=== PATIENT | male | born 1940 | race Caucasian/White ===

== ENCOUNTER 2016-06-26 10:47 | Emergency (ER) | payer MEDICARE, OTHER ==
[~2016-06-26] VITALS: Ht 167.6 cm; Wt 77.9 kg
[~2016-06-26 10:47] MED LIST: ALBU1AER INH; AVOD0.5C PO; FERR65TA PO; FLUD.1 PO; GEMF600T PO; LACT20SO4 PO; OMEP20TA PO; REST30CA PO; SUMA50 PO
[2016-06-26 10:59] VITALS: BP 160/85; PULSE 50; RESP 24; TEMP 97.9; O2SAT 95
[2016-06-26] MEDS ORDERED: ALBUAER3 INH (11:14)
[2016-06-26] MEDS ORDERED: OMEP20TA PO (11:14)
[2016-06-26] MEDS ORDERED: GEMF600T PO (11:14)
[2016-06-26] MEDS ORDERED: REST30CA PO (11:14)
[2016-06-26] MEDS ORDERED: AVOD0.5C PO (11:14)
[2016-06-26] MEDS ORDERED: IMIT50TA PO (11:14)
[2016-06-26] MEDS ORDERED: FERR325T PO (11:14)
--- NOTE | 2016-06-26 11:42 | PD ---
HPI Chief Complaint: Respiratory Symptoms Time Seen by Provider: 11:14 Travel History International Travel<30 days: No Contact w/Intl Traveler<30days: No Traveled to known affect area: No History of Present Illness HPI 76-year-old male complains of shortness of breath. Patient states that the symptoms started about 5 days ago. Patient states that he has intermittently dry cough right days ago and productive cough since yesterday. Patient states that he does not have any fever however intermittent sweating. Patient states that he has intermittent substernal chest discomfort also. Patient denies any chest pain radiation. Patient denies palpitation. Patient has history of COPD on nebulizer treatment at home. Patient also has history of CAD status post stents placement. Patient has history of diabetes. Patient is a nonsmoker. Patient denies any chest pain now. Patient was given prescription for antibiotic and prednisone which she started about 5 days ago after he started having shortness of breath. Patient was advised by his physician to be on home O2 however had not used in the oxygen recently. PFSH Past Medical History Hx Anticoagulant Therapy: Yes (BABY ASA DAILY) Arthritis: Yes (SHOULDERS , HIPS) Asthma: Yes Anxiety: Yes Depression: No Heart Rhythm Problems: No Cancer: No Cardiovascular Problems: Yes (HYPOTENSION, [place], STENTS ) High Cholesterol: Yes Chest Pain: No Congestive Heart Failure: No COPD: Yes Cerebrovascular Accident: No Coronary Artery Disease: Yes Diabetes: Yes (BORDERLINE) Patient Takes Glucophage: No Diminished Hearing: No Deep Vein Thrombosis: Yes Endocrine: No Gastrointestinal Disorders: No GERD: No Glaucoma: No Genitourinary: No Headaches: No Hepatitis: No Hiatal Hernia: No Hypertension: Yes Implanted Vascular Access Dvce: Yes Kidney Stones: No Medical other: No Musculoskeletal: Yes Neurologic: Yes Psychiatric: No Reproductive: Yes Respiratory: Yes (COPD, BRONCHITIS) Immunizations Current: Yes Migraines: Yes Renal Failure: No Seizures: No Sleep Apnea: No Thyroid Disease: No Ulcer: No Tetanus Vaccination: < 5 Years PNEUMOCCOCAL Vaccine (Year): 3 Past Surgical History Abdominal Surgery: Yes (SPLEENECTOMY, APPENDECTOMY) AICD: No Appendectomy: Yes Body Medical Devices: SCREWS IN ANKLE Cholecystectomy: Yes Coronary Stent: Yes Endocrine Surgery: No Insulin Pump: No Joint Replacement: Yes (right ankle screws) Neurologic Surgery: No Pacemaker: No Other Surgery: Yes Social History Alcohol Use: No Tobacco Use: Yes (QUIT 10 YR AGO) Substance Use: No Allergies-Medications (Allergen,Severity, Reaction): Coded Allergies: No Known Allergies (Verified , 06/26/16) Reported Meds & Prescriptions Reported Meds & Active Scripts Active Reported Imitrex (Sumatriptan Succinate) 50 Mg Tab 50 Mg PO ONCE PRN If a satisfactory response has not been obtained at 2 hours, a second dose may be administered Restoril (Temazepam) 30 Mg Cap 30 Mg PO HS PRN Omeprazole 20 Mg Tab 20 Mg PO DAILY Gemfibrozil 600 Mg Tab 600 Mg PO DAILY Take 30 minutes prior to breakfast and dinner. Ferrous Sulfate 325 Mg Tab 325 Mg PO BID Avodart (Dutasteride) 0.5 Mg Cap 0.5 Mg PO DAILY Proair Hfa 8.5 GM Inh (Albuterol Sulfate) 90 Mcg/Act Aer 1 Puff INH Q6H PRN 108 mcg/actuation Review of Systems General / Constitutional: No: Fever Eyes: No: Visual changes HENT: No: Headaches Cardiovascular: Positive: Chest Pain or Discomfort Respiratory: Positive: Cough, Shortness of Breath Gastrointestinal: No: Abdominal Pain Genitourinary: No: Dysuria Musculoskeletal: No: Pain Skin: No Rash Neurologic: No: Weakness Psychiatric: No: Depression Endocrine: No: Polydipsia Hematologic/Lymphatic: No: Easy Bruising Physical Exam Narrative GENERAL: Well-nourished, well-developed patient. SKIN: Warm and dry. HEAD: Normocephalic. EYES: No scleral icterus. No injection or drainage. NECK: Supple, trachea midline. No JVD or lymphadenopathy. CARDIOVASCULAR: Regular rate and rhythm without murmurs, gallops, or rubs. RESPIRATORY: Breath sounds equal bilaterally. No accessory muscle use. Moderate expiratory wheezes bilaterally. Few rhonchi at the bases. GASTROINTESTINAL: Abdomen soft, non-tender, nondistended. MUSCULOSKELETAL: No cyanosis, or edema. BACK: Nontender without obvious deformity. No CVA tenderness. Neurologic exam normal. Data Data Last Documented VS Vital Signs Date Time Temp Pulse Resp B/P Pulse Ox O2 Delivery O2 Flow Rate FiO2 06/26/16 12:12 61 20 116/70 96 Nasal Cannula 2 06/26/16 10:59 97.9 Orders Complete Blood Count With Diff (06/26/16 11:36) Comprehensive Metabolic Panel (06/26/16 11:36) B-Type Natriuretic Peptide (06/26/16 11:36) Act Partial Throm Time (Ptt) (06/26/16 11:36) Prothrombin Time / Inr (Pt) (06/26/16 11:36) Ckmb (Isoenzyme) Profile (06/26/16 11:36) Troponin I (06/26/16 11:36) Iv Access Insert/Monitor (06/26/16 11:36) Ecg Monitoring (06/26/16 11:36) Oximetry (06/26/16 11:36) Oxygen Administration (06/26/16 11:36) Chest, Single Ap (06/26/16 11:36) Methylprednisolone So Succ Inj (Solumedr (06/26/16 11:45) Albuterol-Ipratropium Neb (Duoneb Neb) (06/26/16 11:45) Labs Laboratory Tests Test 06/26/16 11:00 White Blood Count 15.1 TH/MM3 Red Blood Count 4.84 MIL/MM3 Hemoglobin 14.6 GM/DL Hematocrit 43.4 % Mean Corpuscular Volume 89.7 FL Mean Corpuscular Hemoglobin 30.3 PG Mean Corpuscular Hemoglobin 33.7 % Concent Red Cell Distribution Width 14.8 % Platelet Count 193 TH/MM3 Mean Platelet Volume 11.3 FL Neutrophils (%) (Auto) 75.1 % Lymphocytes (%) (Auto) 15.2 % Monocytes (%) (Auto) 6.3 % Eosinophils (%) (Auto) 0.8 % Basophils (%) (Auto) 2.6 % Neutrophils # (Auto) 11.3 TH/MM3 Lymphocytes # (Auto) 2.3 TH/MM3 Monocytes # (Auto) 1.0 TH/MM3 Eosinophils # (Auto) 0.1 TH/MM3 Basophils # (Auto) 0.4 TH/MM3 CBC Comment DIFF FINAL Differential Comment Prothrombin Time 10.7 SEC Prothromb Time International 1.0 RATIO Ratio Activated Partial 22.2 SEC Thromboplast Time Sodium Level 146 MEQ/L Potassium Level 4.0 MEQ/L Chloride Level 110 MEQ/L Carbon Dioxide Level 26.4 MEQ/L Anion Gap 10 MEQ/L Blood Urea Nitrogen 28 MG/DL Creatinine 1.20 MG/DL Estimat Glomerular Filtration 59 ML/MIN Rate Random Glucose 109 MG/DL Calcium Level 8.2 MG/DL Total Bilirubin 0.5 MG/DL Aspartate Amino Transf 26 U/L (AST/SGOT) Alanine Aminotransferase 52 U/L (ALT/SGPT) Alkaline Phosphatase 56 U/L Total Creatine Kinase 46 U/L Troponin I LESS THAN 0.02 NG/ML B-Type Natriuretic Peptide 150 PG/ML Total Protein 6.6 GM/DL Albumin 3.3 GM/DL MDM Medical Decision Making Medical Screen Exam Complete: Yes Emergency Medical Condition: Yes Interpretation(s) 11:41 AM. EKG shows sinus rhythm nonspecific ST-T wave change. 12:52 PM. CBC WBC 15.1. 75 neutrophil. Sodium 146. Chloride 110. BUN 28. Cardiac enzymes are normal. BNP 150. 1318 p.m. Chest x-ray shows no acute consolidation. Differential Diagnosis Differential diagnosis including acute exacerbation of COPD, bronchitis, pneumonia, PE, pneumothorax, angina, [place] Narrative Course 76-year-old male with coughing and shortness of breath and chest discomfort. History of COPD. Albuterol with Atrovent unit dose treatment 3. Solu-Medrol 125 mg IV. Patient was offered admission for acute exacerbation of COPD. Patient wants to go home and try medication at home and oxygen at home. Patient states that he will come back if he has increased shortness of breath. Diagnosis Primary Impression: COPD with acute exacerbation Patient Instructions: General Instructions Additional Instructions: Continue with antibiotic and prednisone is directed. Follow-up with personal physician. Advised patient strongly to use home O2. Return if worse. Med/Other Pt SpecificInfo: Prescription(s) given, No Change to Meds Scripts Levofloxacin (Levaquin)500 Mg [id number] Mg PO DAILY #10 TAB Ref 0 Prov:Richard Bateman MD 06/26/16 Disposition: 01 DISCHARGE HOME Condition: Stable Richard Bateman MD Jun 26, 2016 11:42
[2016-06-26] MEDS: RESP: ALBUTEROL 2.5 MG/IPRATROPIUM 0.5 MG NEB (SCH) INH ×2 (11:45→11:46)
[2016-06-26] MEDS ORDERED: methylPREDNISolone SOD SUCC 125 MG/2 ML VIAL IVP ONE (11:45)
[2016-06-26 11:50] VITALS: O2SAT 97
[2016-06-26 11:52] LABS: AUTOMATED NEUTROPHIL # 11.3 TH/MM3 (1.8-7.7); BASOPHIL # 0.4 TH/MM3 (0-0.2); BASOPHIL % 2.6 % (0.0-2.0); EOSINOPHIL # 0.1 TH/MM3 (0-0.4); EOSINOPHIL % 0.8 % (0.0-4.0); HEMATOCRIT 43.4 % (39.0-51.0); HEMO FLAGS DIFF FINAL; LYMPH % 15.2 % (9.0-44.0); LYMPHOCYTE # 2.3 TH/MM3 (1.0-4.8); MEAN CELL VOLUME 89.7 FL (80.0-100.0); MEAN CORPUSCULAR HEMOGLOBIN 30.3 PG (27.0-34.0); MEAN CORPUSCULAR HGB CONC 33.7 % (32.0-36.0); MONO % 6.3 % (0.0-8.0); NEUT % 75.1 % (16.0-70.0); PLATELET COUNT 193 TH/MM3 (150-450); RED BLOOD COUNT 4.84 MIL/MM3 (4.50-5.90); RED CELL DISTRIBUTION WIDTH 14.8 % (11.6-17.2); WHITE BLOOD COUNT 15.1 TH/MM3 (4.0-11.0)
[2016-06-26 12:04] LABS: CHLORIDE 110 MEQ/L (98-107); SODIUM (NA) 146 MEQ/L (136-145)
[2016-06-26 12:09] LABS: ANION GAP 10 MEQ/L (5-15); APTT (PATIENT) 22.2 SEC (24.3-30.1); BICARBONATE 26.4 MEQ/L (21.0-32.0); BLOOD UREA NITROGEN 28 MG/DL (7-18); PROTHROMBIN TIME - PATIENT 10.7 SEC (9.8-11.6)
[2016-06-26 12:12] VITALS: BP 116/70; PULSE 61; RESP 20; O2SAT 96
[2016-06-26 12:12] LABS: ALT (GPT) 52 U/L (12-78); AST (GOT) 26 U/L (15-37); GLOMERULAR FILTRATION RATE 59 ML/MIN (>89)
[2016-06-26 12:13] LABS: TOTAL BILIRUBIN ADULT 0.5 MG/DL (0.2-1.0)
[2016-06-26 12:15] LABS: ALKALINE PHOSPHATASE 56 U/L (45-117); CREATINE KINASE 46 U/L (39-308)
--- NOTE | 2016-06-26 13:03 | RADHPO ---
EXAM DATE/TIME: 06/26/2016 12:13 [facility] COMPARISON: No previous studies available for comparison. INDICATIONS : Short of breath. MEDICAL HISTORY : Chronic obstructive pulmonary disease. SURGICAL HISTORY : None. ENCOUNTER: Initial ACUITY: 2 days PAIN SCORE: 0/10 LOCATION: Bilateral chest FINDINGS: A single view of the chest demonstrates the lungs to be symmetrically aerated without evidence of mas s, infiltrate or effusion. The cardiomediastinal contours are unremarkable. Osseous structures are intact. CONCLUSION: 1. No active disease. Minimal basilar atelectasis. Ezekiel Mckinney MD on June 26, 2016 at 13:01 Board Certified Radiologist. This report was verified electronically.
[2016-06-26 14:10] VITALS: BP 129/76
[2016-06-26] MEDS ORDERED: LEVA500T PO (14:11)
--- NOTE | 2016-06-27 12:10 | EKG ---
Date Performed: 06/26/2016 Time Performed: 10:50:34 PTAGE: 76 years EKG: Sinus rhythm with PAC(s) NONSPECIFIC ST CHANGES Inferior T wave changes are nonspecific Abnormal ECG PREVIOUS TRACING : 03/21/2015 10.28 DOCTOR: Aldair Christian Interpretating Date/Time 06/27/2016 12:09:23
== END 2016-06-26 14:17 | disposition home or self-care (01) ==
LOC: PHED 10:47
DX: J44.1 Chronic obstructive pulmonary disease with (acute) exacerbation (principal); R07.89 Other chest pain; I25.10 Atherosclerotic heart disease of native coronary artery without angina pectoris; R94.31 Abnormal electrocardiogram [ECG] [EKG]; E11.9 Type 2 diabetes mellitus without complications; I10 Essential (primary) hypertension; E78.00 Pure hypercholesterolemia, unspecified; Z98.61 Coronary angioplasty status; Z79.82 Long term (current) use of aspirin; Z86.79 Personal history of other diseases of the circulatory system; Z86.718 Personal history of other venous thrombosis and embolism; Z87.39 Personal history of other diseases of the musculoskeletal system and connective tissue; Z86.69 Personal history of other diseases of the nervous system and sense organs; Z87.891 Personal history of nicotine dependence
CPT/HCPCS: 71010; 80053; 82550; 83880; 84484; 85025; 85610; 85730; 93005; 94620; 94640; 94664; 96374; 99285; J2930